=== PATIENT | female | born 1935 | race Two or more races ===

== ENCOUNTER 2020-02-16 07:39 | Outpatient (CLI) | payer OTHER ==
[~2020-02-16 07:39] MED LIST: AROMASIN25 MG; LISINOPRIL2.5 MG
== END 2020-02-16 07:53 | disposition home or self-care (01) ==
LOC: SONOGRAMA 07:39
PROVIDERS: ATTEND Pathology Anatomic Pathology & Clinical Pathology
DX: C50.911 Malignant neoplasm of unspecified site of right female breast (principal)

== ENCOUNTER → 2020-09-14 | Day surgery (SDC) | payer OTHER ==
[~2020-09-14] MED LIST changes: +FOLIC A PO; +SIMVASTA PO
== END | disposition home or self-care (01) ==
LOC: ADM 09-13 09:30 → CIR.AMB 06:54
PROVIDERS: ATTEND Surgery
DX: C50.611 Malignant neoplasm of axillary tail of right female breast (principal); C77.3 Secondary and unspecified malignant neoplasm of axilla and upper limb lymph nodes; Z20.822 Contact with and (suspected) exposure to COVID-19; I97.52 Accidental puncture and laceration of a circulatory system organ or structure during other procedure

== ENCOUNTER 2022-06-16 13:35 | Inpatient (IN) | payer OTHER ==
[~2022-06-16] VITALS: Ht 149.9 cm; Wt 116.6 kg
[2022-06-17] MEDS ORDERED: LATANOPROST2.5 ML (08:26)
[2022-06-17] MEDS ORDERED: LISINOPRIL-HCT1 EACH (08:26)
[2022-06-17] MEDS ORDERED: SIMVASTATIN20 MG (08:26)
[2022-06-17] MEDS ORDERED: METOPROLOL SUCC25 MG (08:26)
[2022-06-17] MEDS ORDERED: FOLIC ACID1 MG (08:27)
[2022-06-20] MEDS ORDERED: DOXYCYCLINE HY100 M2 PO (11:48)
== END 2022-06-20 13:44 | disposition home or self-care (01) | DRG 603 ==
LOC: SURH 13:35
PROVIDERS: ADMIT Internal Medicine Hematology & Oncology; ATTEND Internal Medicine Hematology & Oncology
PROC: B54MZZZ Ultrasonography of Right Upper Extremity Veins (ICD-10-PCS; principal; 2022-06-16)
PROC: 02HV33Z Insertion of Infusion Device into Superior Vena Cava, Percutaneous Approach (ICD-10-PCS; 2022-06-17)
DX: L03.113 Cellulitis of right upper limb (principal); C77.3 Secondary and unspecified malignant neoplasm of axilla and upper limb lymph nodes; C50.611 Malignant neoplasm of axillary tail of right female breast; I10 Essential (primary) hypertension

== ENCOUNTER 2023-02-10 10:27 | Emergency (ER) | payer OTHER ==
[~2023-02-10] VITALS: Ht 152.4 cm; Wt 51.3 kg
[~2023-02-10 10:27] MED LIST changes: +DOXYCYCLINE HY100 M2 PO; +FOLIC ACID1 MG; +LATANOPROST2.5 ML; +LISINOPRIL-HCT1 EACH; +METOPROLOL SUCC25 MG; +SIMVASTATIN20 MG
== END 2023-02-10 15:58 | disposition home or self-care (01) ==
LOC: ER 10:27
DX: S01.121A Laceration with foreign body of right eyelid and periocular area, initial encounter (principal); W18.39XA Other fall on same level, initial encounter; Y93.89 Activity, other specified; Y92.89 Other specified places as the place of occurrence of the external cause; Z88.0 Allergy status to penicillin; C50.919 Malignant neoplasm of unspecified site of unspecified female breast; Z88.2 Allergy status to sulfonamides; Z88.6 Allergy status to analgesic agent
CPT/HCPCS: 12013; 70450; 90471; 90714; 96372; 99284; J2001

== ENCOUNTER 2023-02-17 10:19 | Emergency (ER) | payer OTHER ==
[~2023-02-17] VITALS: Ht 152.4 cm; Wt 52.6 kg
== END 2023-02-17 15:40 | disposition home or self-care (01) ==
LOC: ER 10:19
DX: Z48.02 Encounter for removal of sutures (principal)

== ENCOUNTER 2024-07-19 11:51 | Inpatient (IN) | payer OTHER ==
[~2024-07-19] VITALS: Ht 149.9 cm; Wt 43.1 kg
--- NOTE | 2024-07-19 12:40 | NUR ---
PACIENTE ALERTA Y ORIENTADA X3 EN AMBULANCIA, QUIEN REFIERE DEBILIDAD, MALESTAR GENERAL. SE OBSERVA BRAZO DERECHO CON CELULITIS, CALIENTE AL TACTO Y EL MISMO SE IRRADIA AL CENO DERECHO. SE MONITOREAN S/V Y SE UBICA PACIENTE.
[2024-07-19] MEDS ORDERED: FAMOtidine 10 MG/ML (4ML VIAL) IV ONE (13:00)
[2024-07-19] MEDS ORDERED: levoFLOXacin IN DEXTROSE 5 % 500MG/100ML PIGGYBAG IV ONE (13:00)
[2024-07-19] MEDS ORDERED: LEVALBUTEROL HCL 1.25 MG/3 ML SOLUTION IH ONE (13:00)
--- NOTE | 2024-07-19 13:17 | NUR ---
SE RECIBE PTE FEMENINA DE 89 YRS ALERTA CONCIENTE Y TRANAUILA EN , PTE ES EVALUADA POR LA JAZZ REICH QUIEN ORDENA TRATAMIENTO LA CUAL SE EJECUTA POR MS. BOWMAN. SE LE INSERTA LEONARDO CATHETE LA CUAL SE JAREN UC DE LA PTE. SE MANTIEN BAJO OBSERVACION.
[2024-07-19 13:22] LABS: URINE APPEARANCE Clear; URINE BILIRRUBIN Negative (NEGATIVE); URINE BLOOD Negative; URINE COLOR Yellow; URINE GLUCOSE Negative (NEGATIVE); URINE KETONE Negative (NEGATIVE); URINE LEUKOCYTE Negative; URINE NITRATE Negative; URINE PROTEIN Negative (NEGATIVE); URINE UROBILINOGEN 0.2 E.U./dl
[2024-07-19 13:26] LABS: URINE BACTERIA 7.3 uL (0.0-1933); URINE WBC 3.1 uL (0.0-23.2)
[2024-07-19 13:34] LABS: URINE EPITHELIAL CELLS 0.4 uL (0.0-38.8); URINE RBC 0.4 uL (0.0-20.8)
[2024-07-19 13:45] LABS: HEMATOCRIT 31.7 % (36.0-45.00); HEMOGLOBIN 10.7 g/dL (12.0-15.00); MEAN CELL VOLUME 93.3 fL (80.00-100.00); MEAN CORPUSCULAR HEMOGLOBIN 31.3 pg (27.00-32.0); MEAN CORPUSCULAR HGB CONC 33.6 g/dl (32.0-36.0); PLATELET COUNT 205 K/uL (150-450); RED CELL DISTRIBUTION WIDTH 14.2 % (11.5-14.5)
[2024-07-19 14:10] LABS: INR 1.08; PARTIAL THROMBOPLASTIN TIME 24.7 SECONDS (22.0-34.0); PROTHROMBIN TIME 11.7 SECONDS (9.0-11.5)
[2024-07-19 14:16] LABS: ALBUMIN 2.5 gm/dL (3.4-5.0); BILIRUBIN TOTAL 0.38 mg/dL (0.3-1.2); CREATININE SERUM 0.62 mg/dL (0.55-1.02); GFR 91.05; GLOBULINA 3.1 G/DL (2.4-3.5); POTASSIUM 4.66 mEq/L (3.5-5.1); TOTAL PROTEIN 5.6 gm/dL (6.4-8.2)
--- NOTE | 2024-07-19 14:55 | NUR ---
SE RESTRINGE A PACIENTE EN EXTREMIDAD SUPERIOR IZQUIERDA POR PREVENCION A INTERRUPCION DE TRATAMIENTO.
--- NOTE | 2024-07-19 15:00 | NUR ---
SE RECIBE PACIENTE DESORIENTADA X 3 ESFERAS EN CAMA CON BARANDAS ELEVADAS POR SEGURIDAD EN COMPANIA DE FAMILIAR. PRESENTANDO BUEN PATRON RESPIRATORIO. H/L EN BRAZO KAILEE AREA SIM DE EDEMA Y ERITEMA. SE OBSERVA CELLULIITS EN BRAZO DERECHO. SONDA URINARIA DRENANDO A GRAVEDAD 1000ML DE ORINA COLOR AMARILLO INTENSO. RESTRINGIDA EN MANO IZQUIERDA.
[2024-07-19] MEDS ORDERED: ACETAMINOPHEN 325 MG TABLET PO ONE (15:30)
[2024-07-19] MEDS ORDERED: FAMOTIDINE/PF 20 MG in 0.9 % SODIUM CHLORIDE 8 ML IV PUSH SCH (16:57)
[2024-07-19] MEDS ORDERED: FUROsemide 20 MG/2 ML VIAL IV SCH (16:57)
[2024-07-19] MEDS ORDERED: ACETAMINOPHEN 500 MG GEL..CAP PO PRN (17:00)
[2024-07-19] MEDS ORDERED: IPRATROPIUM BROMIDE 0.5 MG/2.5 ML AMPUL.NEB IH SCH (17:00)
[2024-07-19 17:23] VITALS: BP 90/60
[2024-07-19 20:19] VITALS: O2SAT 93
[2024-07-19] MEDS ORDERED: LORazepam 1 MG TABLET PO SCH (21:00)
[2024-07-19] MEDS ORDERED: HALOPERIDOL 5 MG TABLET PO SCH (21:00)
[2024-07-19 22:09] VITALS: BP 138/64
[2024-07-20] VITALS (9 sets, daily range): BP systolic 112–146; BP diastolic 56–86; O2SAT 91–100
[2024-07-20] MEDS ORDERED: IRON FUM,PS/FOLIC/BCOMP,C NO.9 1 CAP CAPSULE PO SCH (09:00)
[2024-07-20] MEDS ORDERED: levoFLOXacin IN DEXTROSE 5 % 150 ML IV SCH (09:00)
[2024-07-20] MEDS ORDERED: ENOXAPARIN SODIUM 40 MG/0.4 ML SYRINGE SUBCUTANEO SCH (09:00)
[2024-07-20] MEDS ORDERED: VITAMIN B COMPLEX/LYSINE 15 ML BLIST.PACK PO SCH ×2 (09:00)
[2024-07-20] MEDS ORDERED: AMINO ACIDS/PROTEIN HYDROLYS 30 ML BLIST.PACK PO SCH (09:00)
[2024-07-20 22:11] LABS: TP PLEURAL FLUID 3.6 g/dl
[2024-07-20 22:21] LABS: PLEURAL FLUID APPEARANCE HAZY; PLEURAL FLUID COLOR YELLOW
[2024-07-20 22:22] LABS: MONONUCLEAR 99 %; POLYMORPHONUCLEAR 1 %
[2024-07-21] VITALS (10 sets, daily range): BP systolic 90–133; BP diastolic 50–76; O2SAT 88–100
[2024-07-21 15:31] LABS: ALBUMIN 2.7 gm/dL (3.4-5.0); BILIRUBIN TOTAL 0.68 mg/dL (0.3-1.2); CALCIUM 9.3 mg/dL (8.5-10.1); CREATININE SERUM 0.84 mg/dL (0.55-1.02); GFR 64.13; GLOBULINA 3.2 G/DL (2.4-3.5); POTASSIUM 4.62 mEq/L (3.5-5.1); TOTAL PROTEIN 5.9 gm/dL (6.4-8.2)
[2024-07-22 00:52] VITALS: O2SAT 97
[2024-07-22 01:52] VITALS: BP 117/54; O2SAT 96
[2024-07-22 05:24] VITALS: BP 117/64; O2SAT 98
[2024-07-22 07:56] VITALS: BP 108/60
[2024-07-22] MEDS ORDERED: levoFLOXacin IN DEXTROSE 5 % 150 ML IV SCH (09:00)
[2024-07-22 10:38] VITALS: O2SAT 97
[2024-07-22 13:55] VITALS: O2SAT 90
[2024-07-23] MEDS ORDERED: FAMOtidine 20 MG TABLET PO SCH (09:00)
== END 2024-07-22 16:58 | disposition home or self-care (01) | DRG 187 ==
LOC: ER 11:51 → MEDJ 18:10
PROVIDERS: General Practice; Radiology Vascular & Interventional Radiology; ADMIT Internal Medicine; ATTEND Internal Medicine
PROC: BW24ZZZ Computerized Tomography (CT Scan) of Chest and Abdomen (ICD-10-PCS; 2024-07-19)
PROC: B54MZZZ Ultrasonography of Right Upper Extremity Veins (ICD-10-PCS; 2024-07-19)
PROC: 4A12X4Z Monitoring of Cardiac Electrical Activity, External Approach (ICD-10-PCS; 2024-07-19)
PROC: 0W993ZZ Drainage of Right Pleural Cavity, Percutaneous Approach (ICD-10-PCS; principal; 2024-07-20)
PROC: 8E0ZXY6 Isolation (ICD-10-PCS; 2024-07-21)
DX: J90 Pleural effusion, not elsewhere classified (principal); L03.113 Cellulitis of right upper limb; C50.611 Malignant neoplasm of axillary tail of right female breast; G30.9 Alzheimer's disease, unspecified; F02.80 Dementia in other diseases classified elsewhere, unspecified severity, without behavioral disturbance, psychotic disturbance, mood disturbance, and anxiety